=== PATIENT | female | born 1950 | race Native Hawaiian/Other Pacific Islander ===

== ENCOUNTER 2022-03-27 08:55 | Outpatient (CLI) | payer OTHER | END 2022-03-27 19:24 | disposition home or self-care (01) | LOC: CT 08:55 | PROVIDERS: ATTEND Internal Medicine | DX: R20.2 Paresthesia of skin (principal) | CPT/HCPCS: 82565; 84520; Q9963 ==

== ENCOUNTER 2022-05-29 08:31 | Outpatient (CLI) | payer OTHER | END 2022-05-29 19:38 | disposition home or self-care (01) | LOC: MRI 08:31 | PROVIDERS: ATTEND Internal Medicine | DX: G93.89 Other specified disorders of brain (principal) | CPT/HCPCS: 36415; 82565; 84520; A9576 ==